=== PATIENT | female | born 1945 | race Caucasian/White ===

== ENCOUNTER 2022-10-07 20:47 | Emergency (ER) | payer BC, OTHER ==
[~2022-10-07] VITALS: Ht 157.5 cm; Wt 95.3 kg
[2022-10-07 20:55] VITALS: BP_SYST 136
[2022-10-07] MEDS ORDERED: NACL 0.9% 1,000 ML IV ONE (22:30)
[2022-10-07 22:32] LABS: BASOPHILS # (AUTO) 0.1 K/uL (0.0-0.2); BASOPHILS % (AUTO) 0.8 % (0.0-2.0); EOSINOPHILS # (AUTO) 0.1 K/uL (0.0-0.4); EOSINOPHILS % (AUTO) 1.7 % (0.0-4.0); HEMATOCRIT 39.4 % (36-48); LYMPHOCYTES # (AUTO) 1.8 K/uL (1.0-5.5); LYMPHOCYTES % (AUTO) 24.9 % (20.5-51.5); MEAN CORPUSCULAR HEMOGLOBIN 29 pg (27-31); MEAN CORPUSCULAR HGB CONC 33 % (32-36); MEAN CORPUSCULAR VOLUME 88 fL (79.0-98.0); MONOCYTES # (AUTO) 0.7 K/uL (0.0-1.0); MONOCYTES % (AUTO) 9.6 % (1.7-9.3); NEUTROPHILS # (AUTO) 4.6 K/uL (1.8-7.7); PLATELET COUNT (AUTO) 195 K/uL (130-430); RED BLOOD CELL COUNT(AUTO) 4.48 MIL/uL (4.2-6.2); RED CELL DISTRIBUTION WIDTH 13.6 % (9.0-15.0); WHITE BLOOD COUNT (AUTO) 7.3 K/uL (4.8-10.8)
[2022-10-07 22:44] LABS: ANION GAP 9 (5-15); CALCIUM 8.9 mg/dL (8.4-11.0); CHLORIDE 103 mmol/L (98-107); CREATININE 0.83 mg/dL (0.55-1.30); GLUCOSE 177 mg/dL (70-99); UREA NITROGEN, BLOOD 26 mg/dL (8-21)
[2022-10-07 22:50] LABS: ALANINE AMINOTRANSFERASE 25 U/L (12-78); ALBUMIN 3.7 g/dL (3.4-4.8); ASPARTATE AMINOTRANSFERASE 18 U/L (10-37); TOTAL BILIRUBIN 0.8 mg/dL (0.0-1.0)
[2022-10-07 23:16] LABS: BILIRUBIN,URINE NEGATIVE (NEGATIVE); BLOOD, URINE NEGATIVE (NEGATIVE); CLARITY/URINE CLEAR (CLEAR); COLOR,URINE YELLOW (YELLOW); GLUCOSE,URINE TRACE (NEGATIVE); KETONES,URINE 1+ (NEGATIVE); LEUKOCYTE ESTERASE ,URINE NEGATIVE (NEGATIVE); NITRITE, URINE NEGATIVE (NEGATIVE); PH,URINE 6.5 (5.0-8.0); PROTEIN URINE NEGATIVE (NEGATIVE); UROBILINOGEN,URINE 0.2 (0.2-1.0)
[2022-10-07 23:50] LABS: FREE T4 (FREE THYROXINE) 1.1 ng/dL (0.6-1.6); THYROID STIMULATING HORMONE 3.09 uIu/mL (0.34-4.82)
[2022-10-08 01:15] VITALS: BP_SYST 130
== END 2022-10-08 01:27 | disposition home or self-care (01) ==
LOC: SED 20:47
DX: R60.9 Edema, unspecified (principal); R42 Dizziness and giddiness; E11.9 Type 2 diabetes mellitus without complications; I10 Essential (primary) hypertension; Z79.899 Other long term (current) drug therapy
CPT/HCPCS: 36415; 71045; 80053; 81003; 83880; 84439; 84443; 84484; 85025; 93005; 99285

== ENCOUNTER 2022-12-21 17:48 | Emergency (ER) | payer OTHER ==
[~2022-12-21] VITALS: Ht 157.5 cm; Wt 91.6 kg
[2022-12-21 18:00] VITALS: BP_SYST 147
--- NOTE | 2022-12-21 19:03 | NUR ---
URINE SPECIMEN COLLECTED AND SENT TO LAB.
[2022-12-21 19:10] LABS: BILIRUBIN,URINE NEGATIVE (NEGATIVE); CLARITY/URINE CLEAR (CLEAR); COLOR,URINE YELLOW (YELLOW); GLUCOSE,URINE NEGATIVE (NEGATIVE); KETONES,URINE NEGATIVE (NEGATIVE); LEUKOCYTE ESTERASE ,URINE NEGATIVE (NEGATIVE); NITRITE, URINE NEGATIVE (NEGATIVE); PH,URINE 5.5 (5.0-8.0); PROTEIN URINE NEGATIVE (NEGATIVE); UROBILINOGEN,URINE 0.2 (0.2-1.0)
[2022-12-21 19:28] LABS: BLOOD, URINE TRACE (NEGATIVE)
[2022-12-21 19:39] LABS: BACTERIA,URINE FEW /HPF (None Seen); RBC,URINE 0-3 /HPF (0-3)
[2022-12-21 19:47] LABS: BASOPHILS # (AUTO) 0.1 K/uL (0.0-0.2); BASOPHILS % (AUTO) 0.8 % (0.0-2.0); EOSINOPHILS # (AUTO) 0.1 K/uL (0.0-0.4); HEMATOCRIT 37.8 % (36-48); LYMPHOCYTES # (AUTO) 1.7 K/uL (1.0-5.5); LYMPHOCYTES % (AUTO) 23.6 % (20.5-51.5); MEAN CORPUSCULAR HEMOGLOBIN 30 pg (27-31); MEAN CORPUSCULAR HGB CONC 34 % (32-36); MEAN CORPUSCULAR VOLUME 87 fL (79.0-98.0); MONOCYTES # (AUTO) 0.6 K/uL (0.0-1.0); MONOCYTES % (AUTO) 8.8 % (1.7-9.3); NEUTROPHILS # (AUTO) 4.7 K/uL (1.8-7.7); NEUTROPHILS % (AUTO) 65.8 % (40.0-70.0); PLATELET COUNT (AUTO) 232 K/uL (130-430); RED BLOOD CELL COUNT(AUTO) 4.35 MIL/uL (4.2-6.2); RED CELL DISTRIBUTION WIDTH 13.6 % (9.0-15.0); WHITE BLOOD COUNT (AUTO) 7.1 K/uL (4.8-10.8)
[2022-12-21 19:55] LABS: ALANINE AMINOTRANSFERASE 20 U/L (12-78); ALBUMIN 3.3 g/dL (3.4-4.8); ANION GAP 10 (5-15); ASPARTATE AMINOTRANSFERASE 16 U/L (10-37); CALCIUM 9.2 mg/dL (8.4-11.0); CHLORIDE 102 mmol/L (98-107); CREATININE 0.99 mg/dL (0.55-1.30); GLUCOSE 121 mg/dL (70-99); UREA NITROGEN, BLOOD 12 mg/dL (8-21)
[2022-12-21 19:58] LABS: LIPASE 182 U/L (73-393)
[2022-12-21 20:30] LABS: FREE T4 (FREE THYROXINE) 1.3 ng/dl (0.8-1.5); THYROID STIMULATING HORMONE 1.72 uIu/mL (0.36-3.74)
--- NOTE | 2022-12-21 20:45 | NUR ---
PT TO ED 2. ASSESSMENT COMPLETED. AWAITING ADDITIONAL EVAL AND ORDERS.
[2022-12-21] MEDS ORDERED: POTASSIUM CHLORIDE 20 MEQ/PKT PACKET PO ONE (21:15)
--- NOTE | 2022-12-21 21:45 | NUR ---
ALCON ABD FLU SAMPLES COLLECTED AND TAKEN TO LAB.
--- NOTE | 2022-12-21 22:06 | NUR ---
SIN AT BEDSIDE TO DISCUSS DINDINGS AND DISCHARGE PLANS.
[2022-12-21] MEDS ORDERED: POTA-197 PO (22:20)
[2022-12-21] MEDS ORDERED: MAGN400T10 PO (22:20)
[2022-12-21 22:31] VITALS: BP_SYST 112
--- NOTE | 2022-12-21 22:35 | NUR ---
Patient given written and verbal discharge instructions and verbalizes understanding. ER MD DIALLO discussed with patient the results and treatment provided. Patient in stable condition. ID arm band removed. Rx of POTASSIUM AND MAGNISIUM given. Patient educated on pain management and to follow up with PMD. Pain Scale 0. Opportunity for questions provided and answered. Medication side effect fact sheet provided.
== END 2022-12-21 22:35 | disposition home or self-care (01) ==
LOC: SED 17:48
DX: R53.1 Weakness (principal); E87.6 Hypokalemia; E78.5 Hyperlipidemia, unspecified; E11.9 Type 2 diabetes mellitus without complications; I10 Essential (primary) hypertension; Z79.899 Other long term (current) drug therapy; Z20.822 Contact with and (suspected) exposure to COVID-19
CPT/HCPCS: 36415; 71045; 80053; 81000; 82550; 83690; 83880; 84439; 84443; 84484; 85025; 93005; 99285